=== PATIENT | male | born 1970 | race Caucasian/White ===

== ENCOUNTER 2020-08-18 19:11 | Emergency (ER) | payer SELFPAY ==
[2020-08-18] MEDS ORDERED: Lidocaine 2% w/Epinephrine 1:200K 20 ML VIAL ONE (19:37)
[2020-08-18] MEDS ORDERED: Lidocaine 2% 20 ml MDV ONE (19:37)
--- NOTE | 2020-08-18 20:14 | RAD ---
LEFT THUMB THREE VIEWS: History: Laceration. Injury with skid saw. FINDINGS: A soft tissue laceration is seen at the level of the distal aspect of the proximal phalanx of the lef t thumb. Tiny radiopaque densities are suspicious for foreign body. Possibility of a bony fracture in volving the head of the proximal phalanx should be considered. IMPRESSION: As above. POS: OFF
[2020-08-18] MEDS ORDERED: cefTRIAXone\\ROCEPHIN 1 GM VIAL ONE (21:26)
[2020-08-18] MEDS ORDERED: Lidocaine 1% 20 ML MDV ONE (21:26)
[2020-08-18] MEDS ORDERED: Boostrix 0.5 ML (Tdap) VIAL ONE (21:26)
[2020-08-18] MEDS ORDERED: Sodium Chloride Irrig Solution 500 ML ONE (22:40)
== END 2020-08-18 21:47 | disposition short-term general hospital (02) ==
LOC: MADERS 19:11
DX: S66.222A Laceration of extensor muscle, fascia and tendon of left thumb at wrist and hand level, initial encounter (principal); W27.0XXA Contact with workbench tool, initial encounter
CPT/HCPCS: 12002; 90471; 90715; 96372; J0696